=== PATIENT | female | born 1980 | race Caucasian/White ===

== ENCOUNTER 2016-12-19 19:59 | Emergency (ER) | payer SELFPAY ==
[2016-12-19 21:20] LABS: ABSOLUTE NEUTROPHIL COUNT 3.6 K/mm3 (1.8-7.7); BASO % 0.5 % (0.2-1.0); EOS # 0.4 (0.0-0.5); EOS % 4.2 % (0.9-2.9); HEMATOCRIT 33.2 % (37.0-47.0); HEMOGLOBIN 10.9 gm/l (12.0-16.0); IMM NEUT% 0.2 % (0-1); LYMPH # 3.7 (1.0-4.8); MEAN CORPUSCULAR HEMOGLOBIN 26.9 pg (27.0-31.0); MEAN CORPUSCULAR HGB CONC 32.8 g/dl (33.0-37.0); MEAN PLATELET VOLUME 10.3 fl (7.4-10.4); MONO # 0.5 (0.0-0.8); MONO % 6.5 % (4-12); NEUT % 43.6 % (43-75); PLATELET COUNT 299 K/mm3 (130-400); RED CELL DISTRIBUTION WIDTH 14.8 % (11.5-14.5)
[2016-12-19 21:48] LABS: ALB/GLOB RATIO 1.4 (>1.0); ALBUMIN 4.1 gm/dL (3.5-5.7); CALCIUM 9.3 mg/dL (8.6-10.3)
[2016-12-19 22:14] LABS: SPECIFIC GRAVITY 1.025 (1.001-1.030); URINE BILIRUBIN 1+ (NEGATIVE); URINE BLOOD 4+ (NEGATIVE); URINE GLUCOSE (UA) NEGATIVE (NEGATIVE); URINE LEUKOCYTE ESTERASE 1+ (NEGATIVE); URINE NITRITE POSITIVE (NEGATIVE); URINE PROTEIN 2+ (NEGATIVE); URINE UROBILINOGEN 1 mg/dL (0-1 mg/dl)
[2016-12-19 22:18] LABS: URINE APPEARANCE CLOUDY; URINE COLOR AMBER
[2016-12-19 22:28] LABS: URINE EPITHELIAL CELLS 0-3 /hpf; URINE RBC >100 /hpf
[2016-12-19 22:29] LABS: URINE BACTERIA 2+
[2016-12-19] MEDS ORDERED: CEPHALEXIN 250 MG CAPSULE ONE (22:36)
[2016-12-19] MEDS ORDERED: PHENAZOPYRIDINE HCL 200 MG TABLET ONE (23:10)
[2016-12-21 15:37] LABS: CHLAMYDIA BD Negative (Negative); N.GONORRHOEAE BD Negative (Negative); SOURCE Urine (())
== END 2016-12-19 23:15 | disposition home or self-care (01) ==
LOC: ED 19:59
DX: N93.8 Other specified abnormal uterine and vaginal bleeding (principal); N39.0 Urinary tract infection, site not specified; I10 Essential (primary) hypertension; N28.9 Disorder of kidney and ureter, unspecified; F17.210 Nicotine dependence, cigarettes, uncomplicated; E11.9 Type 2 diabetes mellitus without complications; Z79.84 Long term (current) use of oral hypoglycemic drugs
CPT/HCPCS: 87491; 87591; 84702; 85025; 87086; 80053; 81001; 99283 ×2; 36415; A9270